=== PATIENT | male | born 1960 | race Caucasian/White ===

== ENCOUNTER 2019-06-09 10:13 | Inpatient (IN) ==
--- NOTE | 2019-05-29 16:23 | PAT Medication Instructions ---
Medication Instructions Date of Service May 29, 2019 Home Medications bupropion HCl [Wellbutrin SR] 100 mg PO QAM lamotrigine [Lamictal] 100 mg PO BID omeprazole magnesium [Prilosec OTC] 20 mg PO DAILY PRN sertraline 100 mg PO BID cholecalciferol (vitamin D3) [Vitamin D3] 2,000 unit PO QAM vit C,K-Yd-mzbmf-lutein-zeaxan [PreserVision AREDS-2] 1 tab PO QAM STOP taking 2 weeks before surgery (or as soon as possible if surgery is within 2 weeks) vit C,W-Jh-avjvt-lutein-zeaxan [PreserVision AREDS-2] 1 tab PO QAM DO NOT take the morning of surgery cholecalciferol (vitamin D3) [Vitamin D3] 2,000 unit PO QAM Take morning of surgery With a small sip of water, OTHERWISE NOTHING TO EAT OR DRINK AFTER MIDNIGHT: bupropion HCl [Wellbutrin SR] 100 mg PO QAM lamotrigine [Lamictal] 100 mg PO BID omeprazole magnesium [Prilosec OTC] 20 mg PO DAILY PRN (if needed) sertraline 100 mg PO BID Take evening before surgery lamotrigine [Lamictal] 100 mg PO BID sertraline 100 mg PO BID Other Notes If you have any questions please call us at [phone] or [phone] or [phone] or [phone]
--- NOTE | 2019-05-30 08:50 | Anesthesiology Consultation ---
Date of Service May 30, 2019 Assessment & Plan (1) Encounter for pre-operative examination: Chart Review Chart Review: Acceptable Risk for Surgery and Patient seen in Pre Admission Testing Teaching & Discussion Pre-Anesthesia Teaching/Discussion Notes: Instructed NPO after midnight before surgery,except medications with 15 cc of water. Medication instructions provided according to the PAT guidelines. History Surgery Operation Date: 06/09/19 12:45 Proposed Procedures p Right Anterior Total Hip Arthroplasty - Vipul Finn DO Height/Weight Height: 5 ft 10 in Weight: 79.3 kg Allergies Allergy/AdvReac Type Severity Reaction Status Date / Time No Known Allergies Allergy Verified 05/29/19 15:34 Medications Home Medications Medication Instructions Recorded Confirmed Last Taken bupropion HCl [Wellbutrin SR] 100 mg PO QAM 08/20/18 05/29/19 08/19/18 lamotrigine [Lamictal] 100 mg PO BID 08/20/18 05/29/19 08/19/18 omeprazole magnesium [Prilosec OTC] 20 mg PO DAILY PRN 08/20/18 05/29/19 08/19/18 sertraline 100 mg PO BID 08/20/18 05/29/19 08/19/18 cholecalciferol (vitamin D3) 2,000 unit PO QAM 05/29/19 05/29/19 Unknown [Vitamin D3] vit C,J-Vj-yfdeq-lutein-zeaxan 1 tab PO QAM 05/29/19 05/29/19 Unknown [PreserVision AREDS-2] Past Medical History Medical History GERD (gastroesophageal reflux disease) controlled Depression History of Ruiz's esophagus Osteoarthritis Exercise / Class Metabolic Activity II 4-5 Yardwork/Stairs/Walk up hill Past Surgical History Surgical History History of shoulder surgery Past Anesthesia History No Hx of Anesthesia Complications and No Family Hx of Anesthesia Complications History of PONV No Hx of PONV and Hx of Motion Sickness Social History Smoking Status: Never smoker Do You Dip or Chew Tobacco: No Hx Alcohol Use: Yes Alcohol type: beer alcohol intake frequency: 0-2 drinks per day (2 beers/day) Hx Substance Use: No Review of Systems Reflux controlled. Patient denies chest pain, shortness of breath, dyspnea on exertion, cough, wheezing, palpitations. Physical Exam Vital Signs VITALS BP 118/79 P 70 TEMP 98.2 SP02 98%RA RESP 16 PHYSICAL Full neck and c-spine range of motion. Full TMJ range of motion. TMD 3 finger breaths Mallampati Score 1 Dentition: missing molars, ?cap on molars Lungs: clear throughout to auscultation Cardiac: regular rate and rhythm, no murmurs noted Spine: normal Carotid arteries: negative bruit Extremities: no edema Trimmed [place] Testing Laboratory Results 05/30/19 09:09 05/30/19 09:09 PT 10.0 Seconds (9.0-12.0) 05/30/19 09:09 INR 1.0 (0.9-1.1) 05/30/19 09:09 APTT 26.1 Seconds (21.0-31.0) 05/30/19 09:09 Blood Type B Positive 05/30/19 09:09 Antibody Screen NEGATIVE 05/30/19 09:09 Electrocardiogram Date: 05/30/19 Findings: + NSR @ (68) Chest X-Ray Date: 05/30/19 Findings: + NAD
--- NOTE | 2019-05-30 09:54 | XRay Report ---
TWO VIEW CHEST CLINICAL HISTORY: Preoperative examination. FINDINGS: PA and lateral chest radiographs are obtained. No prior studies are available for compariso n at the time of dictation. The cardiomediastinal silhouette is unremarkable. The lungs and pleura l spaces are clear. There is no pneumothorax. The bony thorax appears intact. IMPRESSION: No active disease in the chest. Electronically signed by: Baldo Watts M.D. 05/30/2019 9:53 AM
[2019-05-30 10:49] LABS: Basophils # (auto) 0.03 K/uL (0-0.2); Basophils % (auto) 0.6 %; Eosinophils # (auto) 0.12 K/uL (0-0.5); Eosinophils % (auto) 2.6 %; Hematocrit (blood only) 42.5 % (42-52); Hemoglobin 14.3 g/dL (14.0-18.0); Immature Granulocytes # (auto) 0.01 K/uL (0.00-0.02); Immature Granulocytes % (auto) 0.2 %; Lymphocytes # (auto) 1.23 K/uL (1.2-3.4); Lymphocytes % (auto) 26.2 %; Mean Corpuscular Hgb Conc 33.6 g/dL (32-36); Mean Corpuscular Volume 96.4 fL (80-100); Mean Platelet Volume 10.7 fL (7.4-10.4); Monocytes # (auto) 0.49 K/uL (0.11-0.59); Monocytes % (auto) 10.4 %; Neutrophils # (auto) 2.82 K/uL (1.4-6.5); Platelet Count 166 K/uL (130-400); RDW Coefficient of Variation 12.4 % (11.5-14.5); RDW Standard Deviation 43.7 fL (36.4-46.3); Red Blood Count 4.41 M/uL (4.7-6.1)
[2019-05-30 10:55] LABS: BUN Creatinine Ratio 17.1 (10-20); Calcium 8.9 mg/dl (8.5-10.1); Creatinine Clr Calc Pharmacy 70.8 ml/min; Est GFR (African American) 79.4; Est GFR (Non-African American) 68.5; Potassium 5.2 mmol/L (3.5-5.1)
[2019-05-30 11:00] LABS: Partial Thromboplastin Time 26.1 Seconds (21.0-31.0)
--- NOTE | 2019-06-07 07:35 | History & Physical Report ---
Date of Service June 07, 2019 Assessment & Plan (1) Osteoarthritis of right hip: We will proceed with a right anterior total hip arthroplasty. Postoperatively he will be placed on aspirin for DVT prophylaxis and kept overnight in the hospital for postoperative medical management. He plans to use energy physical therapy upon discharge. Present on Admission?: Yes History of Present Illness Chief Complaint: Primary osteoarthritis of the right hip Primary Care Provider: DEWEY Hu Kevin is a pleasant 58-year-old male is been having a several year history of increasing right hip and groin pain. X-rays and clinical examination have been diagnostic for advanced osteoarthritis of the right hip. After failing conservative treatment, he has elected to proceed with a right total hip arthroplasty. Allergies Allergy/AdvReac Type Severity Reaction Status Date / Time No Known Allergies Allergy Verified 05/29/19 15:34 Home Medications Home Medications Medication Instructions Recorded Confirmed Type bupropion HCl [Wellbutrin SR] 100 mg PO QAM 08/20/18 05/29/19 History lamotrigine [Lamictal] 100 mg PO BID 08/20/18 05/29/19 History omeprazole magnesium [Prilosec OTC] 20 mg PO DAILY PRN 08/20/18 05/29/19 History sertraline 100 mg PO BID 08/20/18 05/29/19 History cholecalciferol (vitamin D3) 2,000 unit PO QAM 05/29/19 05/29/19 History [Vitamin D3] vit C,N-Hy-nrewv-lutein-zeaxan 1 tab PO QAM 05/29/19 05/29/19 History [PreserVision AREDS-2] Past Med/Surg History Medical History GERD (gastroesophageal reflux disease) controlled Depression History of Ruiz's esophagus Osteoarthritis Surgical History History of shoulder surgery Social History Preferred Language: Latvian Beliefs That Will Affect Care: None Current Living Situation: Family Feels Safe at Home: Yes Smoking Status: Never smoker Do You Dip or Chew Tobacco: No Second Hand Exposure: No Hx Alcohol Use: Yes Alcohol type: beer Hx Substance Use: No Review of Systems All systems reviewed & are unremarkable except as noted in HPI & below Physical Exam Constitutional: WD/WN, vitals as above Eyes: PERRL, conjunctivae normal, anicteric sclerae ENMT: external ear and nose normal, oropharynx normal Neck: trachea midline, no thyromegaly Respiratory: normal respiratory effort Cardiovascular: RRR, no murmur, no edema Gastrointestinal (Abdomen): normal bowel sounds, soft, nontender, no hepatosplenomegaly Musculoskeletal: Physical examination of the right hip reveals decreased range of motion with flexion, internal and external rotation. There is significant groin pain with forced internal rotation of the hip his leg lengths are essentially equal. Psychiatric: A+Ox3, euthymic affect Results & Data Diagnostic Findings Radiographs of the right hip and pelvis demonstrate advanced osteoarthritis with joint space narrowing osteophyte formation and [id number] articulation.
[~2019-06-09 10:13] MED LIST: ACETAMINOPHEN 500 MG TAB PO SCH; BUPIVACAINE 0.5 % 5 MG/1 ML PF 10ML VIAL ONE; BUPIVACAINE LIPOSOME/PF 266 MG, BUPIVACAINE/EPINEPHRINE 50 ML, SODIUM CHLORIDE 0.9% 30 ... INFIL SCH; CEFAZOLIN 1000MG 1,000 MG/7.5 ML SYR IV SCH; FAMOTIDINE 20 MG TAB PO SCH; GABAPENTIN 300 MG CAP PO SCH; LR 500ML BOLUS IV SCH; LR 500ML BOLUS, THEN 15ML/HR IV SCH; LR 60ML/HR IV SCH; MIDAZOLAM HCL 1 MG/ML 2ML VIAL ONE; ROPIVACAINE 0.5% HCL/PF 150 MG, BUPIVACAINE 0.5% MPF 30 ML, EPINEPHrine 30MG/30ML (OR U... INFIL SCH; TRANEXAMIC ACID 1,000 MG **IV Intra-op IV SCH; TRANEXAMIC ACID 1,000 MG **IV Pre-op IV SCH; fentaNYL citrate 100 MCG/2 ML VIAL ONE
--- NOTE | 2019-06-09 10:14 | History & Physical Bridge Note ---
Date of Service June 09, 2019 History & Physical Bridge Note I have examined the patient, reviewed the History & Physical and in the interval since the performance of the History & Physical I have noted the following changes of clinical significance: no changes noted
[2019-06-09] MEDS ORDERED: ePHEDrine sulfate 50 MG/ML AMP IV PRN (10:59)
[2019-06-09] MEDS ORDERED: fentaNYL citrate 100 MCG/2 ML VIAL IV PRN (10:59)
[2019-06-09] MEDS ORDERED: ONDANSETRON INJ 2 MG/ML 2 ML VIAL IV PRN ×2 (10:59→15:52)
[2019-06-09] MEDS ORDERED: PHENYLEPHRINE 100MCG/ML 5ML SYR IV PRN (10:59)
[2019-06-09] MEDS ORDERED: ATROPINE SULFATE 0.1 MG/ML 10ML SYR IV PRN (10:59)
[2019-06-09] MEDS ORDERED: LABETALOL HCL IV 5 MG/ML 20ML IV PRN (10:59)
[2019-06-09] MEDS ORDERED: ORTHO JOINT ANESTHETIC ONE (11:34)
[2019-06-09] MEDS ORDERED: MIDAZOLAM HCL 1 MG/ML 2ML VIAL ONE (12:03)
[2019-06-09] MEDS ORDERED: ONDANSETRON INJ 2 MG/ML 2 ML VIAL ONE (12:24)
[2019-06-09] MEDS ORDERED: LIDOCAINE HCL 2% 2 ML VIAL/AMP(20MG/ML) INFIL ONE (12:24)
[2019-06-09] MEDS ORDERED: PROPOFOL IV EMULSION 10 MG/ML 20 ML VIAL IV ONE ×2 (12:24→13:53)
[2019-06-09] MEDS ORDERED: ePHEDrine sulfate 50 MG/ML AMP ONE (12:24)
[2019-06-09] MEDS ORDERED: CEFAZOLIN 1000MG 1,000 MG/7.5 ML SYR IV ONE (12:29)
[2019-06-09] MEDS ORDERED: CEFAZOLIN 250 MG/ML 1 GM VIAL ONE (13:35)
--- NOTE | 2019-06-09 13:45 | Operative Report ---
Post Operative Report Pre & Post Diagnosis Operation Date: 06/09/19 12:10 Pre-Op Diagnosis: Right Hip Degenerative Joint Disease Post-Op Diagnosis: Right Hip Degenerative Joint Disease Procedure Operation Date: 06/09/19 12:10 Actual Procedures p Right Anterior Total Hip Arthroplasty - Vipul Finn DO Surgeon Vipul Finn DO Ward Supervisor Vipul Henson PAC Estimated Blood Loss 350 Findings Consistent with Post-Op Diagnosis Specimens Right femoral head Complications none Disposition Disposition: Recovery Room Indications Saurav is a pleasant 58-year-old male who presented my office with chronic increasing right hip and groin pain. X-rays and clinical examination were diag nostic for primary osteoarthritis of the right hip. After failing conservative treatment, he elected to proceed with a right total hip arthroplasty. Description of Procedure Implants used Biomet Taperloc total hip arthroplasty system with a size 11 standard offset Taperloc stem, a 56 mm G7 cup with a 25mm screw, an E1 polyethylene liner, a 40 mm ceramic head with a 0 neck. Patient arrived at the hospital for the above procedure. They were seen in the preoperative holding area and the operative extremity was identified and signed. They were given a spinal anesthetic. They were given a preoperative antibiotic and TXA. They were taken back To the operating room and laid on the table in the supine position. The leg was brought out through a Puristst leg positioner. The hip was then prepped and draped in sterile fashion. A timeout was done and the patient in upper extremities properly identified. An anterior approach was used. Dissection was taken down through the fascia and the tensor muscle belly was retracted laterally and the rectus was retracted medially. The circumflex vessels were identified and ligated. The capsule was then incised and tagged for later repair. The femoral neck was then cut and the femoral head was removed. The acetabulum was exposed. Time was spent doing a complete circumferential labral release. Sequential reaming of the acetabulum up to a size 55 reamer was done. Final reamings were done under fluoroscopy to ensure appropriate version. A Biomet 56 mm G7 cup was then impacted into place. A single 25 mm screw was placed. The E1 polyethylene liner was then snapped into place. Surrounding soft tissues were then injected with 100 cc of an orthopedic pain control cocktail. The proximal femur was then exposed. Sequential broaching up to a size 11 broach was done. Off that broach a size 40 head with a 0 neck was trialed. The hip was reduced and fluoroscopic images showed anatomic alignment of the implants in acceptable length. The broach was removed. The final size 11 standard offset Taperloc stem was then impacted into place. A ceramic 40 mm head with a 0 neck was then impacted into place in the hip was reduced. Final fluoroscopic images showed anatomic reduction of the hip. The capsule was then closed with #1 Vicryl suture. A dilute betadyne lavage was then done for 3 minutes. The joint was then irrigated with normal saline solution. The fascia was closed with #1 PDS suture. Skin was closed with 2-0 Vicryl, julia, and a Ashely VAC dressing. The patient was then transferred to a hospital bed and taken to the post anesthesia care unit in stable condition. They tolerated the procedure well. I attest to the content of the Intraoperative Record and any orders documented therein. Any exceptions are noted below.
--- NOTE | 2019-06-09 15:10 | Anesthesiology Progress Note ---
Date of Service June 09, 2019 Anesthesia Post Procedure Vital Signs Vital Signs: Temp Pulse Pulse Resp BP Pulse Ox 06/09/19 14:55 68 15 93/64 L 97 06/09/19 14:45 67 18 95/62 L 95 06/09/19 14:35 64 20 96/65 L 96 06/09/19 14:25 67 16 102/70 99 06/09/19 14:15 36.3 C L 78 21 114/69 98 06/09/19 10:55 36.8 C 74 18 138/71 94 Pain Intensity Right Hip: Pain Intensity: 0 Transfer of Care Handoff Completed per policy Notes Mental Status: alert / awake / arousable Patient Amnestic to Procedure: Yes Nausea / Vomiting: adequately controlled Pain: adequately controlled Airway Patency, RR, SpO2: stable & adequate BP & HR: stable & adequate Hydration State: stable & adequate Neuraxial Anesthesia: was administered and sensory block is resolving Anesthetic Complications: no major complications apparent and Pt Satisfied with anesthetic care
--- NOTE | 2019-06-09 15:18 | XRay Report ---
XR hip 1V RT w pelvis CLINICAL HISTORY: Degenerative arthritis. Hip arthroplasty. COMPARISON: May 2019 DISCUSSION: There are postsurgical changes of a total right hip arthroplasty. The acetabular and femo ral components appear well seated. There is no dislocation. Overlying skin julia are evident. There is air within the soft tissues consistent with recent surgery. Arthritic changes are present within the left hip with deformity of the femoral head unchanged from the preceding study IMPRESSION: Postsurgical changes of a total right hip arthroplasty. No evidence of dislocation. Electronically signed by: Eliezer Martin M.D. 06/09/2019 3:16 PM
[2019-06-09] MEDS ORDERED: MAGNESIUM HYDROXIDE SUSP 30 ML UDC PO PRN (15:52)
[2019-06-09] MEDS ORDERED: NALOXONE HCL 0.4 MG/1 ML VIAL/CARP IV PRN (15:52)
[2019-06-09] MEDS ORDERED: BISACODYL 10 MG SUPP PR PRN (15:52)
[2019-06-09] MEDS ORDERED: PANTOprazole 40 MG TAB PO PRN (15:52)
[2019-06-09] MEDS ORDERED: SODIUM CHLORIDE 0.9% 1000ML 1,000 ML IV SCH (15:52)
[2019-06-09] MEDS ORDERED: METOCLOPRAMIDE HCL INJ 5 MG/ML 2 ML VIAL IV PRN (15:52)
[2019-06-09] MEDS ORDERED: HYDROmorphone INJ 0.5 MG/0.5 ML SYR IV PRN (15:52)
--- NOTE | 2019-06-09 16:40 | Fluoroscopy Report ---
FL hip RT 1V CLINICAL HISTORY: RT ANTERIOR HIP COMPARISON STUDY: None. FLUOROSCOPY TIME: 52nd. FINDINGS: 2 fluoroscopic spot images of the right hip demonstrate a right total hip arthroplasty. The hardware appears intact. No fracture or dislocation. IMPRESSION: Fluoroscopy provided for right total hip arthroplasty. Electronically signed by: Matthew Silva M.D. 06/09/2019 4:39 PM
[2019-06-09] MEDS: KETOROLAC 30 MG/ML VIAL IV SCH ×2 (17:09→23:23)
[2019-06-09] MEDS: CEFAZOLIN 2000MG 2,000 MG/15 ML SYR IV SCH (19:27)
[2019-06-09] MEDS: lamoTRIgine 100 MG TAB PO SCH (20:30)
[2019-06-09] MEDS: SERTRALINE HCL 100 MG TABLET PO SCH (20:30)
[2019-06-09] MEDS ORDERED: ACETAMINOPHEN 500 MG TAB ONE (20:50)
[2019-06-09] MEDS: DOCUSATE SODIUM 100 MG CAP PO SCH (20:51)
[2019-06-09] MEDS: ACETAMINOPHEN 500 MG TAB PO SCH (20:51)
[2019-06-09] MEDS: ASPIRIN 81 MG ECTAB PO SCH (20:51)
[2019-06-09] MEDS ORDERED: SENNA 8.6 MG TAB PO SCH (21:00)
[2019-06-10] MEDS: OXYCODONE HCL IR 5 MG TAB (IMMEDIATE RELEASE) PO PRN ×2 (01:45→10:30)
[2019-06-10] MEDS: CEFAZOLIN 2000MG 2,000 MG/15 ML SYR IV SCH (04:50)
[2019-06-10] MEDS: KETOROLAC 30 MG/ML VIAL IV SCH ×2 (04:51→12:21)
[2019-06-10] MEDS: ACETAMINOPHEN 500 MG TAB PO SCH (04:52)
[2019-06-10 06:28] LABS: Basophils # (auto) 0.02 K/uL (0-0.2); Basophils % (auto) 0.2 %; Eosinophils # (auto) 0.02 K/uL (0-0.5); Eosinophils % (auto) 0.2 %; Hemoglobin 10.5 g/dL (14.0-18.0); Immature Granulocytes # (auto) 0.03 K/uL (0.00-0.02); Immature Granulocytes % (auto) 0.3 %; Lymphocytes # (auto) 1.11 K/uL (1.2-3.4); Lymphocytes % (auto) 10.6 %; Mean Corpuscular Hgb Conc 33.9 g/dL (32-36); Mean Corpuscular Volume 95.7 fL (80-100); Mean Platelet Volume 9.9 fL (7.4-10.4); Monocytes # (auto) 0.85 K/uL (0.11-0.59); Monocytes % (auto) 8.1 %; Neutrophils # (auto) 8.44 K/uL (1.4-6.5); Neutrophils % (auto) 80.6 %; Platelet Count 124 K/uL (130-400); RDW Coefficient of Variation 12.6 % (11.5-14.5); RDW Standard Deviation 44.2 fL (36.4-46.3); Red Blood Count 3.24 M/uL (4.7-6.1); White Blood Count 10.47 K/uL (4.8-10.8)
[2019-06-10 07:03] LABS: BUN Creatinine Ratio 18.2 (10-20); Calcium 8.1 mg/dl (8.5-10.1); Creatinine Clr Calc Pharmacy 81.3 ml/min; Est GFR (African American) 93.9; Potassium 4.3 mmol/L (3.5-5.1)
[2019-06-10] MEDS ORDERED: MULTIVITAMIN TAB PO SCH (09:00)
[2019-06-10] MEDS ORDERED: NON-FORMULARY MEDICATION (Vit C,E-Zn-Coppr-Lutein-Zeaxan [Preservision Areds-2] 1 TAB) PO SCH (09:00)
[2019-06-10] MEDS ORDERED: BuPROPion SR 100 MG TABCR PO SCH (09:00)
[2019-06-10] MEDS: SERTRALINE HCL 100 MG TABLET PO SCH (09:13)
[2019-06-10] MEDS: ASPIRIN 81 MG ECTAB PO SCH (09:13)
[2019-06-10] MEDS: lamoTRIgine 100 MG TAB PO SCH (09:13)
[2019-06-10] MEDS: DOCUSATE SODIUM 100 MG CAP PO SCH (09:14)
--- NOTE | 2019-06-10 09:45 | Orthopedic Progress Note ---
Date of Service June 10, 2019 Assessment & Plan (1) Osteoarthritis of right hip: Overall he is doing very well. Is not having too much pain in the hip. He will be seen by physical therapy this morning for ambulation and range of motion exercises. He will be discharged home later this morning. He will follow-up with orthopedics in 2 weeks. Present on Admission?: Yes Subjective Saurav was seen and examined at bedside this morning. Overall is doing very well. Is not having too much pain in the right hip. He is already been ambulating. His pain is controlled and he has no complaints. Physical Exam Musculoskeletal: On physical examination of the right hip, the Ashely VAC dressing is to suction. He has active dorsiflexion and plantarflexion of the right ankle. Sensations intact throughout. Results & Data Vital Signs (Past 12 Hours) Vital Signs Temp Pulse Resp BP Pulse Ox 06/10/19 08:10 36.8 C 76 18 111/73 96 06/10/19 03:02 36.5 C 71 14 112/69 95 06/09/19 23:41 36.4 C L 63 16 99/61 L 96 PG Care Time/CCT Total # of Minutes Spent Total Time Spent with Patient: Total time spent is greater than 50% in coordination of care (as documented) at patient's floor/unit and/or counseling patient:
--- NOTE | 2019-06-10 09:46 | Discharge Summary ---
Date of Service June 10, 2019 Admission HPI Per Admitting Provider Kevin hernandez a pleasant 58-year-old male is been having a several year history of increasing right hip and groin pain. X-rays and clinical examination have been diagnostic for advanced osteoarthritis of the right hip. After failing conservative treatment, he has elected to proceed with a right total hip arthroplasty. Specialty Data Orthopedic H & H 05/30/19 06/10/19 Range/Units 09:09 05:57 Hgb 14.3 10.5 L (14.0-18.0) g/dL Hct 42.5 31.0 L (42-52) % Coagulation 05/30/19 Range/Units 09:09 INR 1.0 (0.9-1.1) Discharge Data Consultations 06/10/19 08:00 Consult Case Management - Discharge Planning Routine Procedures Performed Operation Date: 06/09/19 12:10 Actual Procedures p Right Anterior Total Hip Arthroplasty - Vipul Finn DO Hospital Course (1) Osteoarthritis of right hip: On June 09, 2019.arrived at [facility] and underwent a right anterior total hip arthroplasty without complication. He had a spinal anesthetic. Postoperatively he was started on aspirin for DVT prophylaxis and discharged to general orthopedic floors. His hospital course is uneventful. On postop day #1 his H&H was stable and his pain was well controlled. He was able to ambulate well with physical therapy. He was then discharged home with [facility]. He will follow-up with orthopedics in 2 weeks. Discharge Instructions Home Medications Medication Instructions Recorded Confirmed bupropion HCl [Wellbutrin SR] 100 mg PO QAM 08/20/18 06/09/19 lamotrigine [Lamictal] 100 mg PO BID 08/20/18 06/09/19 omeprazole magnesium [Prilosec OTC] 20 mg PO DAILY PRN 08/20/18 06/09/19 sertraline 100 mg PO BID 08/20/18 06/09/19 cholecalciferol (vitamin D3) 10,000 unit PO QAM 05/29/19 06/09/19 [Vitamin D3] vit C,X-Fr-qbsja-lutein-zeaxan 1 tab PO QAM 05/29/19 06/09/19 [PreserVision AREDS-2] Previous Rx's Medication Instructions Recorded aspirin [Ecotrin Low Strength] 81 mg PO BID #84 tab 06/10/19 oxycodone 5 mg PO Q4H PRN #30 tab 06/10/19
== END 2019-06-10 13:28 | disposition home or self-care (01) | DRG 470 ==
LOC: ASU 10:13 → 3E 14:20

== ENCOUNTER 2019-10-20 05:07 | Inpatient (IN) ==
--- NOTE | 2019-09-26 12:04 | PAT Medication Instructions ---
Medication Instructions Date of Service September 26, 2019 Home Medications Prilosec OTC 20 mg PO DAILY PRN bupropion HCl [Wellbutrin SR] 100 mg PO QAM lamotrigine [Lamictal] 100 mg PO BID sertraline 100 mg PO BID PreserVision AREDS-2 1 tab PO QAM cholecalciferol (vitamin D3) [Vitamin D3] 4,000 unit PO QAM aspirin [Ecotrin Low Strength] 81 mg PO QAM ibuprofen 400 mg PO Q6H PRN ASK your surgeon for instructions ibuprofen 400 mg PO Q6H PRN STOP taking 2 weeks before surgery (or as soon as possible if surgery is within 2 weeks) PreserVision AREDS-2 1 tab PO QAM DO NOT take the morning of surgery cholecalciferol (vitamin D3) [Vitamin D3] 4,000 unit PO QAM Take morning of surgery With a small sip of water, OTHERWISE NOTHING TO EAT OR DRINK AFTER MIDNIGHT: Prilosec OTC 20 mg PO DAILY PRN (if needed) bupropion HCl [Wellbutrin SR] 100 mg PO QAM lamotrigine [Lamictal] 100 mg PO BID sertraline 100 mg PO BID aspirin [Ecotrin Low Strength] 81 mg PO QAM Take evening before surgery Prilosec OTC 20 mg PO DAILY PRN (if needed) lamotrigine [Lamictal] 100 mg PO BID sertraline 100 mg PO BID Other Notes If you have any questions please call us at [phone] or [phone] or [phone] or [phone]
--- NOTE | 2019-09-27 11:09 | Anesthesiology Consultation ---
Date of Service September 27, 2019 Assessment & Plan (1) Encounter for pre-operative examination: - S/P Right anterior hip arthroplasty: 06/09/19: SAB x 1 at L3-L4 at [facility] Chart Review Chart Review: Acceptable Risk for Surgery and Patient seen in Pre Admission Testing Teaching & Discussion Pre-Anesthesia Teaching/Discussion Notes: Instructed NPO after midnight before surgery,except medications with 15 cc of water. Medication instructions provided according to the PAT guidelines. History Surgery Operation Date: 10/20/19 12:10 Proposed Procedures p Left Anterior Total Hip Arthroplasty - Vipul Finn, Height/Weight Height: 5 ft 10 in Weight: 82.6 kg Allergies Allergy/AdvReac Type Severity Reaction Status Date / Time No Known Allergies Allergy Verified 09/20/19 08:06 Medications Home Medications Medication Instructions Recorded Confirmed Last Taken Prilosec OTC 20 mg PO DAILY PRN 08/20/18 09/20/19 08/19/18 bupropion HCl [Wellbutrin SR] 100 mg PO QAM 08/20/18 09/20/19 06/08/19 09:30 lamotrigine [Lamictal] 100 mg PO BID 08/20/18 09/20/19 06/08/19 22:00 sertraline 100 mg PO BID 08/20/18 09/20/19 06/08/19 22:00 PreserVision AREDS-2 1 tab PO QAM 05/29/19 09/20/19 06/01/19 cholecalciferol (vitamin D3) 4,000 unit PO QAM 05/29/19 09/20/19 06/08/19 09:30 [Vitamin D3] aspirin [Ecotrin Low Strength] 81 mg PO QAM 09/20/19 09/20/19 Unknown ibuprofen 400 mg PO Q6H PRN 09/20/19 09/20/19 Unknown Past Medical History Medical History Depression GERD (gastroesophageal reflux disease) controlled History of Ruiz's esophagus Insomnia Osteoarthritis Exercise / Class Metabolic Activity II 4-5 Yardwork/Stairs/Walk up hill (one flight of stairs (no chest pain/no sob)) Past Family History Family History Grandmother (Paternal) Family history of diabetes mellitus Father Family history of diabetes mellitus Brother Family history of diabetes mellitus Family/Other Family history of diabetes mellitus Past Surgical History Surgical History History of colonoscopy History of esophagogastroduodenoscopy (EGD) History of shoulder surgery left History of tooth extraction History of total hip arthroplasty Right anterior hip arthroplasty: 06/09/19: SAB x 1 at L3-L4 at [facility] Past Anesthesia History No Family Hx of Anesthesia Complications and Other Hx post-op constipation (per patient, already discussed with surgeon). History of PONV No Hx of PONV and Hx of Motion Sickness Social History Smoking Status: Never smoker Do You Dip or Chew Tobacco: No Hx Alcohol Use: Yes Alcohol type: hard liquor alcohol intake frequency: 0-2 drinks per day (one drink/night) Hx Substance Use: No Review of Systems Reflux controlled. Patient denies chest pain, shortness of breath, dyspnea on exertion, cough, wheezing, palpitations. Physical Exam Vital Signs VITALS BP 122/79 P 63 TEMP 98.4 SP02 97%RA RESP 16 PHYSICAL Full neck and c-spine range of motion. Full TMJ range of motion. TMD 3 finger breaths Mallampati Score 2 Dentition: missing molars, several crowns on molars Lungs: clear throughout to auscultation Cardiac: regular rate and rhythm, no murmurs noted Spine: normal Carotid arteries: negative bruit Extremities: no edema Trimmed [place] Testing Laboratory Results 09/27/19 11:28 09/27/19 11:28 PT 10.5 Seconds (9.0-12.0) 09/27/19 11:28 INR 1.0 (0.9-1.1) 09/27/19 11:28 APTT 26.4 Seconds (21.0-31.0) 09/27/19 11:28 Blood Type B Positive 09/27/19 11:28 Antibody Screen NEGATIVE 09/27/19 11:28 Electrocardiogram Date: 05/30/19 Findings: + NSR @ (68) Chest X-Ray Date: 05/30/19 Findings: + NAD
[2019-09-27 12:31] LABS: Basophils # (auto) 0.06 K/uL (0-0.2); Basophils % (auto) 1.4 %; Eosinophils # (auto) 0.08 K/uL (0-0.5); Eosinophils % (auto) 1.9 %; Hematocrit (blood only) 42.7 % (42-52); Lymphocytes # (auto) 1.01 K/uL (1.2-3.4); Lymphocytes % (auto) 23.7 %; Mean Corpuscular Hgb Conc 32.8 g/dL (32-36); Mean Corpuscular Volume 94.5 fL (80-100); Mean Platelet Volume 10.8 fL (7.4-10.4); Monocytes # (auto) 0.34 K/uL (0.11-0.59); Neutrophils # (auto) 2.77 K/uL (1.4-6.5); Platelet Count 172 K/uL (130-400); RDW Coefficient of Variation 13.5 % (11.5-14.5); RDW Standard Deviation 46.7 fL (36.4-46.3); Red Blood Count 4.52 M/uL (4.7-6.1); White Blood Count 4.26 K/uL (4.8-10.8)
[2019-09-27 12:45] LABS: Partial Thromboplastin Time 26.4 Seconds (21.0-31.0); Prothrombin Time 10.5 Seconds (9.0-12.0)
[2019-09-27 12:46] LABS: BUN Creatinine Ratio 17.7 (10-20); Calcium 9.1 mg/dl (8.5-10.1); Creatinine Clr Calc Pharmacy 79.7 ml/min; Est GFR (African American) 91.7; Est GFR (Non-African American) 79.1; Potassium 4.5 mmol/L (3.5-5.1)
--- NOTE | 2019-10-19 09:12 | History & Physical Report ---
Date of Service October 19, 2019 Assessment & Plan (1) Osteoarthritis of left hip: We will proceed with a left anterior total hip arthroplasty. Postoperatively he will be started on aspirin for DVT prophylaxis. He will be kept overnight in the hospital for postoperative medical management. He plans to use energy physical therapy upon discharge. Present on Admission?: Yes History of Present Illness Chief Complaint: Primary osteoarthritis of the left hip Primary Care Provider: DEWEY Hu Saurav is a pleasant 58-year-old male who is been dealing with chronic increasing bilateral knee pain. X-rays and clinical examination have been diagnostic for primary osteoarthritis of both hips. He underwent a right anterior total hip arthroplasty in June 2019 and did very well with that. He has now elected to proceed with a left total knee arthroplasty. Allergies Allergy/AdvReac Type Severity Reaction Status Date / Time No Known Allergies Allergy Verified 09/20/19 08:06 Home Medications Home Medications Medication Instructions Recorded Confirmed Type Prilosec OTC 20 mg PO DAILY PRN 08/20/18 09/20/19 History bupropion HCl [Wellbutrin SR] 100 mg PO QAM 08/20/18 09/20/19 History lamotrigine [Lamictal] 100 mg PO BID 08/20/18 09/20/19 History sertraline 100 mg PO BID 08/20/18 09/20/19 History PreserVision AREDS-2 1 tab PO QAM 05/29/19 09/20/19 History cholecalciferol (vitamin D3) 4,000 unit PO QAM 05/29/19 09/20/19 History [Vitamin D3] aspirin [Ecotrin Low Strength] 81 mg PO QAM 09/20/19 09/20/19 History ibuprofen 400 mg PO Q6H PRN 09/20/19 09/20/19 History Past Med/Surg History Medical History Depression GERD (gastroesophageal reflux disease) controlled History of Ruiz's esophagus Insomnia Osteoarthritis Surgical History History of colonoscopy History of esophagogastroduodenoscopy (EGD) History of shoulder surgery left History of tooth extraction History of total hip arthroplasty Right anterior hip arthroplasty: 06/09/19: SAB x 1 at L3-L4 at [facility] Family History Grandmother (Paternal) Family history of diabetes mellitus Father Family history of diabetes mellitus Brother Family history of diabetes mellitus Family/Other Family history of diabetes mellitus Social History Preferred Language: Arabic Communication Ability: Effective Revenue Cycle Manager Required: No Beliefs That Will Affect Care: None Current Living Situation: Alone Feels Safe at Home: Yes Smoking Status: Never smoker Second Hand Exposure: No ; Hx Alcohol Use: Yes Alcohol type: hard liquor Hx Substance Use: No Review of Systems All systems reviewed & are unremarkable except as noted in HPI & below Physical Exam Constitutional: WD/WN, vitals as above Eyes: PERRL, conjunctivae normal, anicteric sclerae ENMT: external ear and nose normal, oropharynx normal Neck: trachea midline, no thyromegaly Respiratory: normal respiratory effort Cardiovascular: RRR, no murmur, no edema Gastrointestinal (Abdomen): normal bowel sounds, soft, nontender, no hepatosplenomegaly Musculoskeletal: Physical examination of the left hip reveals decreased range of motion with flexion, internal and external rotation. There is significant groin pain with forced internal rotation of the hip his leg lengths are essentially equal. Psychiatric: A+Ox3, euthymic affect Results & Data Diagnostic Findings Radiographs of the left hip and pelvis demonstrate advanced osteoarthritis with joint space narrowing osteophyte formation and [id number] articulation.
[2019-10-20] MEDS ORDERED: LACTATED RINGER'S 1,000 ML IV SCH (06:00)
[2019-10-20] MEDS ORDERED: LR 500ML BOLUS, THEN 15ML/HR IV SCH (06:00)
[2019-10-20] MEDS ORDERED: TRANEXAMIC ACID 1,000 MG **IV Pre-op IV SCH (06:00)
[2019-10-20] MEDS ORDERED: FAMOTIDINE 20 MG TAB PO SCH (06:00)
[2019-10-20] MEDS ORDERED: ROPIVACAINE 0.5% HCL/PF 150 MG, BUPIVACAINE 0.5% MPF 30 ML, EPINEPHrine 30MG/30ML (OR U... INFIL SCH (06:00)
[2019-10-20] MEDS ORDERED: CEFAZOLIN 2000MG 2,000 MG/15 ML SYR IV SCH (06:00)
[2019-10-20] MEDS ORDERED: GABAPENTIN 600 MG DOSE PO SCH (06:00)
[2019-10-20] MEDS ORDERED: ACETAMINOPHEN 500 MG TAB PO SCH (06:00)
[2019-10-20] MEDS ORDERED: TRANEXAMIC ACID 1,000 MG **IV Intra-op IV SCH (06:00)
[2019-10-20] MEDS ORDERED: BUPIVACAINE 0.5 % 5 MG/1 ML PF 10ML VIAL ONE (06:18)
[2019-10-20] MEDS ORDERED: dexAMETHasone 4 MG TAB PO ONE (06:26)
[2019-10-20] MEDS ORDERED: fentaNYL citrate 100 MCG/2 ML VIAL IV PRN (06:34)
[2019-10-20] MEDS ORDERED: ONDANSETRON INJ 2 MG/ML 2 ML VIAL IV PRN ×2 (06:34→09:49)
[2019-10-20] MEDS ORDERED: ATROPINE SULFATE 0.1 MG/ML 10ML SYR IV PRN (06:34)
[2019-10-20] MEDS ORDERED: ePHEDrine sulfate 50 MG/ML AMP IV PRN (06:34)
--- NOTE | 2019-10-20 06:35 | History & Physical Bridge Note ---
Date of Service October 20, 2019 History & Physical Bridge Note I have examined the patient, reviewed the History & Physical and in the interval since the performance of the History & Physical I have noted the following changes of clinical significance: no changes noted
[2019-10-20] MEDS ORDERED: MIDAZOLAM HCL 1 MG/ML 2ML VIAL ONE (06:38)
[2019-10-20] MEDS ORDERED: ORTHO JOINT ANESTHETIC ONE (06:49)
[2019-10-20] MEDS ORDERED: PROPOFOL IV EMULSION 10 MG/ML 20 ML VIAL IV ONE (07:29)
[2019-10-20] MEDS ORDERED: ONDANSETRON INJ 2 MG/ML 2 ML VIAL ONE (07:29)
[2019-10-20] MEDS ORDERED: LIDOCAINE HCL 2% 2 ML VIAL/AMP(20MG/ML) INFIL ONE (07:29)
--- NOTE | 2019-10-20 08:21 | Operative Report ---
PG Post Operative Report Pre & Post Diagnosis Operation Date: 10/20/19 07:00 Pre-Op Diagnosis: Left Hip Osteoarthritis Post-Op Diagnosis: Left Hip Osteoarthritis I identified the patient and participated in the time-out.: Yes Procedure Operation Date: 10/20/19 07:00 Actual Procedures p Left Anterior Total Hip Arthroplasty(Left) - Vipul Finn DO Surgeon Vipul Finn, Director Investment Banking Vipul Henson PAC Estimated Blood Loss 300 Findings Consistent with Post-Op Diagnosis Specimens Left femoral head Complications none Disposition Disposition: Recovery Room Julian Mg is a pleasant 58-year-old male who presented my office with bilateral hip pain. X-rays clinical examination were diagnostic for bilateral osteoarthritis of his hips. He underwent a right anterior total hip arthroplasty done 3 months ago and did well with that. He has elected proceed with a left total hip arthroplasty. Description of Procedure Implants used Biomet Taperloc total hip arthroplasty system with a size 11 standard offset Taperloc stem, a 56 mm G7 cup with a 25mm screw, an E1 polyethylene liner, a 40 mm ceramic head with a 0 neck. Patient arrived at the hospital for the above procedure. They were seen in the preoperative holding area and the operative extremity was identified and signed. They were given a spinal anesthetic. They were given a preoperative antibiotic and TXA. They were taken back To the operating room and laid on the table in the supine position. The leg was brought out through a Puristst leg positioner. The hip was then prepped and draped in sterile fashion. A timeout was done and the patient and the operative extremity was properly identified. An anterior approach was used. Dissection was taken down through the fascia and the tensor muscle belly was retracted laterally and the rectus was retracted medially. The circumflex vessels were identified and ligated. The capsule was then incised and tagged for later repair. The femoral neck was then cut and the femoral head was removed. The acetabulum was exposed. Time was spent doing a complete circumferential labral release. Sequential reaming of the acetabulum up to a size 55 reamer was done. Final reamings were done under fluoroscopy to ensure appropriate version. A Biomet 56 mm G7 cup was then impacted into place. A single 25 mm screw was placed. The E1 polyethylene liner was then snapped into place. Surrounding soft tissues were then injected with 100 cc of an orthopedic pain control cocktail. The proximal femur was then exposed. Sequential broaching up to a size 11 broach was done. Off that broach a size 40 head with a 0 neck was trialed. The hip was reduced and fluoroscopic images showed anatomic alignment of the implants in acceptable length. The broach was removed. The final size 11 standard offset Taperloc stem was then impacted into place. A ceramic 40 mm head with a 0 neck was then impacted into place in the hip was reduced. Final fluoroscopic images showed anatomic reduction of the hip. The capsule was then closed with #1 Vicryl suture. A dilute betadyne lavage was then done for 3 minutes. The joint was then irrigated with normal saline solution. The fascia was closed with #1 PDS suture. Skin was closed with 2-0 Vicryl, julia, and a Ashely VAC dressing. The patient was then transferred to a hospital bed and taken to the post anesthesia care unit in stable condition. They tolerated the procedure well. I attest to the content of the Intraoperative Record and any orders documented therein. Any exceptions are noted below.
--- NOTE | 2019-10-20 09:20 | XRay Report ---
XR hip 1V LT w pelvis CLINICAL HISTORY: IN PACU - A/P PELVIS and LATERAL HIP POSTOP EXAMINATION COMPARISON: 06/09/2019 DISCUSSION: A total right hip arthroplasty is again visualized. There is now evidence for a total lef t hip arthroplasty. The acetabular and femoral components appear well seated. There is no dislocation . Overlying skin julia are evident. There is a small amount of gas within the soft tissues consiste nt with recent surgery. IMPRESSION: Postsurgical changes of a total left hip arthroplasty. No complicating features identifie dMario Electronically signed by: Eliezer Martin M.D. 10/20/2019 9:19 AM
[2019-10-20] MEDS ORDERED: HYDROmorphone INJ 0.5 MG/0.5 ML SYR IV PRN (09:49)
[2019-10-20] MEDS ORDERED: NON-FORMULARY MEDICATION (Vit C,E-Zn-Coppr-Lutein-Zeaxan [Preservision Areds-2] 1 TAB) PO SCH (09:49)
[2019-10-20] MEDS ORDERED: METOCLOPRAMIDE HCL INJ 5 MG/ML 2 ML VIAL IV PRN (09:49)
[2019-10-20] MEDS ORDERED: ACETAMINOPHEN 1,000 MG/100 ML VIAL IV PRN (09:49)
[2019-10-20] MEDS ORDERED: bisacodyL 10 MG SUPP PR PRN (09:49)
[2019-10-20] MEDS ORDERED: NALOXONE HCL 0.4 MG/1 ML VIAL/CARP IV PRN (09:49)
[2019-10-20] MEDS ORDERED: MAGNESIUM HYDROXIDE SUSP 30 ML UDC PO PRN (09:49)
[2019-10-20] MEDS ORDERED: PANTOprazole 40 MG TAB PO PRN (09:57)
--- NOTE | 2019-10-20 10:30 | Anesthesiology Progress Note ---
Date of Service October 20, 2019 Anesthesia Post Procedure Vital Signs Vital Signs: Temp Pulse Pulse Pulse Resp BP Pulse Ox 10/20/19 10:19 57 L 16 119/82 99 10/20/19 09:35 97.5 F L 57 L 16 121/81 97 10/20/19 09:25 56 L 12 118/77 97 10/20/19 09:15 97.3 F L 55 L 14 108/79 97 10/20/19 09:05 58 L 23 114/61 99 10/20/19 08:55 60 13 114/74 96 10/20/19 08:49 96.8 F L 63 16 125/77 97 10/20/19 05:31 98.4 F 69 18 128/92 95 Transfer of Care Handoff Completed per policy Notes Mental Status: alert / awake / arousable and participated in evaluation Patient Amnestic to Procedure: Yes Nausea / Vomiting: adequately controlled Pain: adequately controlled Airway Patency, RR, SpO2: stable & adequate BP & HR: stable & adequate Hydration State: stable & adequate Neuraxial Anesthesia: was administered and sensory block is resolving Anesthetic Complications: no major complications apparent and Pt Satisfied with anesthetic care
--- NOTE | 2019-10-20 11:26 | Fluoroscopy Report ---
FL hip LT 1V CLINICAL HISTORY: LEFT ANTERIOR HIP COMPARISON STUDY: AP pelvis dated 07/26/2019 FLUOROSCOPY TIME: 28 seconds. NUMBER OF FLUOROSCOPIC IMAGES: 2 FINDINGS: 2 intraoperative fluoroscopic spot images reveal postsurgical changes of a total left hip a rthroplasty. No dislocation is evident. IMPRESSION: Intraoperative fluoroscopic spot images obtained demonstrating a total left hip arthropl asty. Electronically signed by: Eliezer Martin M.D. 10/20/2019 11:25 AM
[2019-10-20] MEDS: BuPROPion SR 100 MG TABCR PO SCH (12:04)
[2019-10-20] MEDS: lamoTRIgine 100 MG TAB PO SCH ×2 (12:04→20:08)
[2019-10-20] MEDS: ASPIRIN 81 MG ECTAB PO SCH ×2 (12:04→20:08)
[2019-10-20] MEDS: KETOROLAC 30 MG/ML VIAL IV SCH ×3 (12:04→22:21)
[2019-10-20] MEDS: DOCUSATE SODIUM 100 MG CAP PO SCH ×2 (12:04→20:08)
[2019-10-20] MEDS: SERTRALINE HCL 100 MG TABLET PO SCH ×2 (12:04→20:08)
[2019-10-20] MEDS: MULTIVITAMIN TAB PO SCH (12:05)
[2019-10-20] MEDS: SODIUM CHLORIDE 0.9% 1000ML 1,000 ML IV SCH ×2 (12:08→22:18)
[2019-10-20] MEDS: CEFAZOLIN 2000MG 2,000 MG/15 ML SYR IV SCH ×2 (15:18→22:21)
[2019-10-20] MEDS ORDERED: SENNA 8.6 MG TAB PO SCH (21:00)
[2019-10-21] MEDS: TRAMADOL HCL 50 MG TABLET PO PRN ×2 (02:39→10:36)
[2019-10-21] MEDS: KETOROLAC 30 MG/ML VIAL IV SCH (05:30)
[2019-10-21 06:55] LABS: Basophils # (auto) 0.02 K/uL (0-0.2); Basophils % (auto) 0.2 %; Eosinophils # (auto) 0.01 K/uL (0-0.5); Eosinophils % (auto) 0.1 %; Hematocrit (blood only) 33.1 % (42-52); Hemoglobin 11.2 g/dL (14.0-18.0); Immature Granulocytes # (auto) 0.03 K/uL (0.00-0.02); Immature Granulocytes % (auto) 0.3 %; Lymphocytes # (auto) 1.35 K/uL (1.2-3.4); Lymphocytes % (auto) 12.1 %; Mean Corpuscular Hemoglobin 31.5 pg (25-34); Mean Corpuscular Hgb Conc 33.8 g/dL (32-36); Mean Corpuscular Volume 93.2 fL (80-100); Monocytes % (auto) 8.1 %; Neutrophils # (auto) 8.82 K/uL (1.4-6.5); Neutrophils % (auto) 79.2 %; Platelet Count 138 K/uL (130-400); RDW Coefficient of Variation 13.4 % (11.5-14.5); RDW Standard Deviation 45.8 fL (36.4-46.3); Red Blood Count 3.55 M/uL (4.7-6.1); White Blood Count 11.13 K/uL (4.8-10.8)
[2019-10-21 07:30] LABS: BUN Creatinine Ratio 18.9 (10-20); Calcium 8.5 mg/dl (8.5-10.1); Creatinine Clr Calc Pharmacy 88.3 ml/min; Est GFR (African American) 103.8; Est GFR (Non-African American) 89.5
[2019-10-21] MEDS ORDERED: dexAMETHasone 10 MG in SYRINGE 0 ML IV SCH (08:00)
--- NOTE | 2019-10-21 08:51 | Orthopedic Progress Note ---
Date of Service October 21, 2019 Assessment & Plan (1) History of total left hip arthroplasty: Overall he is doing very well. He is not having much pain in the left hip. He will be seen by physical therapy this morning for ambulation and range of motion exercises. He is on aspirin for DVT prophylaxis. He can be discharged home later today. Present on Admission?: Yes Subjective Saurav was seen and examined at bedside this morning. Overall he is doing very well. Is not having much pain in the left hip. He has already been up and ambulating. He has no complaints. Physical Exam Musculoskeletal: On physical examination of the left hip, the Ashely VAC dressing is to suction. His leg lengths are equal. He has active dorsiflexion and plantarflexion of his left ankle. Sensation is intact throughout. Results & Data Vital Signs (Past 12 Hours) Vital Signs Temp Pulse Pulse Resp BP BP Pulse Ox 10/21/19 03:45 36.9 C 76 16 120/75 98 10/20/19 23:35 36.6 C 77 16 111/63 97 Laboratory Results H & H 09/27/19 10/21/19 Range/Units 11:28 06:38 Hgb 14.0 11.2 L (14.0-18.0) g/dL Hct 42.7 33.1 L (42-52) % Coagulation 09/27/19 Range/Units 11:28 INR 1.0 (0.9-1.1) Diagnostic Findings Postoperative x-rays of the left hip show the prosthesis to be in anatomic alignment without any evidence of fracture, dislocation, or loosening. PG Care Time/CCT Total # of Minutes Spent Total Time Spent with Patient: Total time spent is greater than 50% in coordination of care (as documented) at patient's floor/unit and/or counseling patient:
--- NOTE | 2019-10-21 08:52 | Discharge Summary ---
Date of Service October 21, 2019 Admission HPI Per Admitting Provider Saurav is a pleasant 58-year-old male who is been dealing with chronic increasing bilateral knee pain. X-rays and clinical examination have been diagnostic for primary osteoarthritis of both hips. He underwent a right anterior total hip arthroplasty in June 2019 and did very well with that. He has now elected to proceed with a left total knee arthroplasty. Principal Diagnosis Left total hip arthroplasty Discharge Data Allergies Allergy/AdvReac Type Severity Reaction Status Date / Time No Known Allergies Allergy Verified 10/20/19 05:28 Consultations 10/21/19 08:00 Consult Case Management - Discharge Planning Routine Procedures Performed Operation Date: 10/20/19 07:00 Actual Procedures p Left Anterior Total Hip Arthroplasty(Left) - Vipul Finn DO Ordered Studies 10/20/19 07:00 FL fluoroscopy <1hr Routine FL hip LT 1V Routine Hospital Course (1) History of total left hip arthroplasty: On October 20, 2019 Saurav arrived at [facility] and underwent a left anterior total hip arthroplasty without complication. He had a spinal anesthetic. Postoperatively he was started on aspirin for DVT prophylaxis and discharged to general orthopedic floors. His hospital course was uneventful. On postop day #1 his H&H was stable and his pain was well controlled. He was able to participate well with physical therapy. He was then discharged home with [facility]. He will follow-up with orthopedics in 2 weeks. Total Time Total Time Spent Total Time Spent (In Minutes): 20 Discharge Plan Discharge Items Reason For Visit: Left Hip Degenerative Joint Disease Medications and DC Order Prescriptions: No Action sertraline 100 mg Tablet 100 mg PO BID RF: 0 bupropion HCl [Wellbutrin SR] 100 mg Tablet Sustained-Release 12 Hr 100 mg PO QAM RF: 0 lamotrigine [Lamictal] 100 mg Tablet 100 mg PO BID RF: 0 Prilosec OTC 20 mg Tablet,Delayed Release (Dr/Ec) 20 mg PO DAILY PRN (Reason: GERD) RF: 0 cholecalciferol (vitamin D3) [Vitamin D3] 2,000 unit Capsule 4,000 unit PO QAM RF: 0 PreserVision AREDS-2 [phone] Capsule 1 tab PO QAM RF: 0 aspirin [Ecotrin Low Strength] 81 mg tablet,delayed release (DR/EC) 81 mg PO QAM RF: 0 ibuprofen 200 mg Tablet 400 mg PO Q6H PRN (Reason: Pain) RF: 0 Admission Data Admit Date/Time: 10/20/19 09:40 Attending Provider: Vipul Finn Admit Provider: Vipul Finn Primary Care Provider: Ann Morales
[2019-10-21] MEDS: MULTIVITAMIN TAB PO SCH (08:57)
[2019-10-21] MEDS: SERTRALINE HCL 100 MG TABLET PO SCH (08:57)
[2019-10-21] MEDS: DOCUSATE SODIUM 100 MG CAP PO SCH (08:57)
[2019-10-21] MEDS: BuPROPion SR 100 MG TABCR PO SCH (08:57)
[2019-10-21] MEDS: ASPIRIN 81 MG ECTAB PO SCH (08:57)
[2019-10-21] MEDS: lamoTRIgine 100 MG TAB PO SCH (08:57)
== END 2019-10-21 10:46 | disposition home health service (06) | DRG 470 ==
LOC: ASU 05:07 → 3E 09:40

== ENCOUNTER 2021-10-07 06:02 | Observation (INO) ==
--- NOTE | 2021-07-28 13:49 | PAT Medication Instructions ---
Medication Instructions Date of Service July 28, 2021 Home Medications Medication Instructions Recorded sildenafil 100 mg tablet See Rx Instructions PO DAILY PRN 06/12/20 #10 tab sertraline 100 mg tablet 100 mg PO BID #60 tab 01/27/21 lamotrigine 150 mg tablet 150 mg PO BID #60 tab 02/28/21 (Lamictal) bupropion HCl 100 mg tablet,12 hr 200 mg PO QAM #60 ea 03/03/21 sustained-release omeprazole 20 mg capsule,delayed 20 mg PO DAILY #90 cap 05/05/21 release gabapentin 300 mg capsule 300 mg PO .COMPLEX #90 cap 05/16/21 trazodone 50 mg tablet 50 mg PO DAILY PRN #30 tab 07/02/21 valsartan 160 mg tablet 160 mg PO DAILY #30 tab 07/22/21 cholecalciferol (vitamin D3) 50 mcg (2,000 unit) capsule (Vitamin D3) 4,000 unit PO QAM ibuprofen 200 mg tablet 400 mg PO Q6H PRN aspirin 81 mg tablet,delayed release (Ecotrin Low Strength) 81 mg PO QAM sildenafil 100 mg tablet See Rx Instructions PO DAILY PRN sertraline 100 mg tablet 100 mg PO BID lamotrigine 150 mg tablet (Lamictal) 150 mg PO BID bupropion HCl 100 mg tablet,12 hr sustained-release 200 mg PO QAM omeprazole 20 mg capsule,delayed release 20 mg PO DAILY gabapentin 300 mg capsule 300 mg PO .COMPLEX trazodone 50 mg tablet 50 mg PO DAILY PRN valsartan 160 mg tablet 160 mg PO DAILY PreserVision AREDS-2 1 tab PO QAM ASK your surgeon for instructions ibuprofen 200 mg tablet 400 mg PO Q6H PRN ASK your prescriber and surgeon aspirin 81 mg tablet,delayed release (Ecotrin Low Strength) 81 mg PO QAM STOP taking 2 weeks before surgery (or as soon as possible if surgery is within 2 weeks) PreserVision AREDS-2 1 tab PO QAM DO NOT take the morning of surgery cholecalciferol (vitamin D3) 50 mcg (2,000 unit) capsule (Vitamin D3) 4,000 unit PO QAM sildenafil 100 mg tablet See Rx Instructions PO DAILY PRN valsartan 160 mg tablet 160 mg PO DAILY Take morning of surgery With a small sip of water, OTHERWISE NOTHING TO EAT OR DRINK AFTER MIDNIGHT: sertraline 100 mg tablet 100 mg PO BID lamotrigine 150 mg tablet (Lamictal) 150 mg PO BID bupropion HCl 100 mg tablet,12 hr sustained-release 200 mg PO QAM omeprazole 20 mg capsule,delayed release 20 mg PO DAILY gabapentin 300 mg capsule 300 mg PO .COMPLEX Take evening before surgery sildenafil 100 mg tablet See Rx Instructions PO DAILY PRN (if needed) sertraline 100 mg tablet 100 mg PO BID lamotrigine 150 mg tablet (Lamictal) 150 mg PO BID gabapentin 300 mg capsule 300 mg PO .COMPLEX trazodone 50 mg tablet 50 mg PO DAILY PRN (if needed) Other Notes If you have any questions please call us at [phone] or [phone] or [phone] or [phone]
--- NOTE | 2021-07-31 08:17 | Anesthesiology Consultation ---
Date of Service July 31, 2021 Assessment & Plan (1) Encounter for pre-operative examination: COVID screening: Per assessment on 07/31: Travel screen negative, no known COVID- 19 positive contacts or current COVID-19 related symptoms. Patient vaccinated. Surgeon arranging preop COVID testing. Awaiting results. Chart Review Chart Review: Acceptable Risk for Surgery and Patient seen in Pre Admission Testing Teaching & Discussion Pre-Anesthesia Teaching/Discussion Notes: Instructed NPO after midnight before surgery,except medications with 15 cc of water. Medication instructions provided according to the PAT guidelines. History Surgery Operation Date: 08/13/21 10:35 Proposed Procedures p C5-C7 Anterior Cervical Discectomy and Fusion, Possible C6 Corpectomy, Spinal Cord Monitoring - David Hill DO Height/Weight Height: 5 ft 10 in Weight: 87.1 kg Allergies Allergy/AdvReac Type Severity Reaction Status Date / Time No Known Allergies Allergy Verified 07/28/21 09:16 Medications Home Medications Medication Instructions Recorded Confirmed Last Taken cholecalciferol (vitamin D3) 50 4,000 unit PO QAM 05/29/19 07/28/21 08/08/20 08:00 mcg (2,000 unit) capsule (Vitamin D3) ibuprofen 200 mg tablet 400 mg PO Q6H PRN 09/20/19 07/28/21 08/08/20 21:00 aspirin 81 mg tablet,delayed 81 mg PO QAM tab 05/30/20 07/28/21 08/07/20 08:00 release (Ecotrin Low Strength) sildenafil 100 mg tablet See Rx Instructions PO DAILY PRN 06/12/20 07/28/21 08/03/20 #10 tab sertraline 100 mg tablet 100 mg PO BID #60 tab 01/27/21 07/28/21 Unknown lamotrigine 150 mg tablet 150 mg PO BID #60 tab 02/28/21 07/28/21 Unknown (Lamictal) bupropion HCl 100 mg tablet,12 hr 200 mg PO QAM #60 ea 03/03/21 07/28/21 Unknown sustained-release omeprazole 20 mg capsule,delayed 20 mg PO DAILY #90 cap 05/05/21 07/28/21 Unknown release gabapentin 300 mg capsule 300 mg PO .COMPLEX #90 cap 05/16/21 07/28/21 Unknown trazodone 50 mg tablet 50 mg PO DAILY PRN #30 tab 07/02/21 07/28/21 Unknown valsartan 160 mg tablet 160 mg PO DAILY #30 tab 07/22/21 07/28/21 Unknown vit C 250 mg-vit E 90 mg-zinc 40 1 tab PO QAM 07/28/21 07/28/21 Unknown mg-copper 1 [id number] capsule (PreserVision AREDS-2) Past Medical History Medical History Barretts esophagus Cervical spinal stenosis Chronic back pain Cervical region (no ROM limitations per pt) Depression GERD (gastroesophageal reflux disease) controlled Osteoarthritis Exercise / Class Metabolic Activity II 4-5 Yardwork/Stairs/Walk up hill (one FS (no CP, no SOB)) Past Family History Family History Grandmother (Paternal) Family history of diabetes mellitus Depression Father Family history of diabetes mellitus Depression Brother Family history of diabetes mellitus Family/Other Family history of diabetes mellitus Grandfather (Maternal) Alcohol abuse Mother Breast cancer Other No family history of adverse response to anesthesia Denies family history of Ovarian cancer Prostate cancer Myocardial infarction Colorectal cancer Past Surgical History Surgical History History of colonoscopy History of esophagogastroduodenoscopy (EGD) History of shoulder surgery Left History of tooth extraction History of total hip arthroplasty R/L Left anterior hip arthroplasty (10/20/19): SAB at L3/L4 (x1 attempt) at [facility] Past Anesthesia History No Hx of Anesthesia Complications and No Family Hx of Anesthesia Complications History of PONV No Hx of PONV and Hx of Motion Sickness Social History Smoking Status: Never smoker Do You Dip or Chew Tobacco: No Hx Alcohol Use: Yes Alcohol type: hard liquor alcohol intake frequency: 0-2 drinks per day (2 drinks/day (liquor)) substance use type: does not use Review of Systems Patient denies chest pain, shortness of breath, dyspnea on exertion, fever, chills, cough, wheezing, palpitations. Physical Exam Vital Signs VITALS BP 124/81 P 75 TEMP 98.4 SP02 96%RA RESP 16 PHYSICAL (PE done per Nedra Onick, PAC) Full cervical extension range of motion. Full TMJ range of motion. TMD 3.5 finger breaths Mallampati Score 2 Dentition: intact, + several crown (molars) Lungs: clear throughout to auscultation Cardiac: regular rate and rhythm, no murmurs noted Spine: normal Carotid arteries: negative bruit Extremities: no edema Trimmed madrid Lab Results Anesthesia Preop Results Results Anesthesia Widget: WBC 5.30 K/uL (4.8-10.8) 07/31/21 Hgb 14.1 g/dL (14.0-18.0) 07/31/21 Hct 42.0 % (42-52) 07/31/21 Plt 138 K/uL (130-400) 07/31/21 Na 140 mmol/L (136-145) 07/31/21 K 4.4 mmol/L (3.5-5.1) 07/31/21 Cl 106 mmol/L (98-107) 07/31/21 CO2 28 mmol/L (21-32) 07/31/21 BUN 20 mg/dl (7-18) H 07/31/21 Creat 1.10 mg/dl (0.6-1.4) 07/31/21 Glucose Level 143 mg/dl (70-99) H 07/31/21 PT 9.3 Seconds (9.0-12.0) 07/31/21 PTT 24.5 Seconds (21.0-31.0) 07/31/21 INR 0.9 (0.9-1.1) 07/31/21 Urine Color Yellow 07/31/21 Urine Appearance Clear (Clear) 07/31/21 Urine pH 5.5 (4.5-7.5) 07/31/21 Urine Specific [place] 1.018 (1.000-1.030) 07/31/21 Urine Protein Negative (Negative) 07/31/21 Urine Glucose (UA) Negative (Negative) 07/31/21 Urine Ketones Negative (Negative) 07/31/21 Urine Blood Negative (Negative) 07/31/21 Urine Nitrite Negative (Negative) 07/31/21 Urine Bilirubin Negative (Negative) 07/31/21 Urine Urobilinogen Negative (Negative) 07/31/21 Urine Leukocyte Esterase Negative (Negative) 07/31/21 Blood Type B Positive 07/31/21 Antibody Screen NEGATIVE 07/31/21 Testing Electrocardiogram Date: 07/31/21 Findings: + NSR @ (73) Chest X-Ray Date: 07/31/21 Findings: + NAD
--- NOTE | 2021-08-11 10:14 | History & Physical Report ---
Date of Service August 11, 2021 Assessment & Plan (1) Herniation of cervical intervertebral disc with radiculopathy: Plan: Assessment cervical disc herniation with myeloradiculopathy. Plan at this time patient has progressive neurologic deficit we are recommending an C5-C7 anterior cervical discectomy and fusion with possible C6 corpectomy. Hopefully we can avoid permanent neurologic deficit by urgent attention and surgery. Risk benefits pros cons and alternatives were outlined in detail. History of Present Illness Chief Complaint: Neck and left arm pain with weakness Primary Care Provider: DEWEY Malin This is a 60-year-old male presents with marked decline in status complaining of significant cervicalgia with radiation to left upper extremity. He notes significant sensory deficits and weakness affecting his ability to function. Is failed extensive course of nonoperative care. Allergies Allergy/AdvReac Type Severity Reaction Status Date / Time No Known Allergies Allergy Verified 08/07/21 12:27 Home Medications Medication Instructions Recorded Confirmed Type cholecalciferol (vitamin D3) 50 4,000 unit PO QAM 05/29/19 08/07/21 History mcg (2,000 unit) capsule (Vitamin D3) ibuprofen 200 mg tablet 400 mg PO Q6H PRN 09/20/19 08/07/21 History aspirin 81 mg tablet,delayed 81 mg PO QAM tab 05/30/20 08/07/21 History release (Ecotrin Low Strength) sildenafil 100 mg tablet See Rx Instructions PO DAILY PRN 06/12/20 08/07/21 Rx #10 tab lamotrigine 150 mg tablet 150 mg PO BID #60 tab 02/28/21 08/07/21 Rx (Lamictal) bupropion HCl 100 mg tablet,12 hr 200 mg PO QAM #60 ea 03/03/21 08/07/21 Rx sustained-release omeprazole 20 mg capsule,delayed 20 mg PO DAILY #90 cap 05/05/21 08/07/21 Rx release gabapentin 300 mg capsule 300 mg PO .COMPLEX #90 cap 05/16/21 08/07/21 Rx trazodone 50 mg tablet 50 mg PO DAILY PRN #30 tab 07/02/21 08/07/21 Rx valsartan 160 mg tablet 160 mg PO DAILY #30 tab 07/22/21 08/07/21 Rx sertraline 100 mg tablet 100 mg PO BID #60 tab 08/06/21 08/07/21 Rx Past Med/Surg History Medical History Barretts esophagus Cervical spinal stenosis Chronic back pain Cervical region (no ROM limitations per pt) Depression GERD (gastroesophageal reflux disease) controlled Osteoarthritis Surgical History History of colonoscopy History of esophagogastroduodenoscopy (EGD) History of shoulder surgery Left History of tooth extraction History of total hip arthroplasty R/L Left anterior hip arthroplasty (10/20/19): SAB at L3/L4 (x1 attempt) at [facility] Family History Grandmother (Paternal) Family history of diabetes mellitus Depression Father Family history of diabetes mellitus Depression Brother Family history of diabetes mellitus Family/Other Family history of diabetes mellitus Grandfather (Maternal) Alcohol abuse Mother Breast cancer Other No family history of adverse response to anesthesia Denies family history of Ovarian cancer Prostate cancer Myocardial infarction Colorectal cancer Social History (Updated 08/07/21 @ 12:38 by Vivian Donohue MA) Smoking Status: Never smoker Second Hand Exposure: No; Do You Dip or Chew Tobacco: No; Hx Alcohol Use: Yes Alcohol type: hard liquor Hx Substance Use: No Preferred Language: Spanish Communication Ability: Effective Visual Impairment: No Limitations Hearing Ability: Hard of Hearing 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 Deltoids and biceps are 5 5 bilaterally. The significant sensory deficits to the left as well as a positive Spurling sign.
[~2021-10-07 06:02] MED LIST changes: -BUPIVACAINE 0.5 % 5 MG/1 ML PF 10ML VIAL ONE; -BUPIVACAINE LIPOSOME/PF 266 MG, BUPIVACAINE/EPINEPHRINE 50 ML, SODIUM CHLORIDE 0.9% 30 ... INFIL SCH; -CEFAZOLIN 1000MG 1,000 MG/7.5 ML SYR IV SCH; +CeleBREX 200 MG CAP PO SCH; -FAMOTIDINE 20 MG TAB PO SCH; -GABAPENTIN 300 MG CAP PO SCH; +GABAPENTIN 600 MG DOSE PO SCH; +LR 15ML/HR IV SCH; -LR 500ML BOLUS IV SCH; -LR 500ML BOLUS, THEN 15ML/HR IV SCH; -LR 60ML/HR IV SCH; -MIDAZOLAM HCL 1 MG/ML 2ML VIAL ONE; -ROPIVACAINE 0.5% HCL/PF 150 MG, BUPIVACAINE 0.5% MPF 30 ML, EPINEPHrine 30MG/30ML (OR U... INFIL SCH; -TRANEXAMIC ACID 1,000 MG **IV Intra-op IV SCH; -TRANEXAMIC ACID 1,000 MG **IV Pre-op IV SCH; +ceFAZolin 2000MG 2,000 MG/15 ML SYR IV SCH; -fentaNYL citrate 100 MCG/2 ML VIAL ONE
--- NOTE | 2021-10-07 07:38 | History & Physical Bridge Note ---
Date of Service October 07, 2021 History & Physical Bridge Note I have examined the patient, reviewed the History & Physical and in the interval since the performance of the History & Physical I have noted the following changes of clinical significance: no changes noted
--- NOTE | 2021-10-07 07:47 | History & Physical Report ---
Date of Service October 07, 2021 Assessment & Plan (1) Herniation of cervical intervertebral disc with radiculopathy: Plan: C5-C6 anterior cervical discectomy and fusion, possible C6 corpectomy History of Present Illness Chief Complaint: Neck and arm pain Primary Care Provider: DEWEY Malin This is a 60-year-old male presents with worsening neck and arm symptoms after failing course of nonoperative care is here for surgical invention. Allergies Allergy/AdvReac Type Severity Reaction Status Date / Time No Known Allergies Allergy Verified 10/07/21 06:16 Home Medications Medication Instructions Recorded Confirmed Type cholecalciferol (vitamin D3) 50 4,000 unit PO QAM 05/29/19 10/07/21 History mcg (2,000 unit) capsule (Vitamin D3) ibuprofen 200 mg tablet 400 mg PO Q6H PRN 09/20/19 10/07/21 History aspirin 81 mg tablet,delayed 81 mg PO QAM tab 05/30/20 10/07/21 History release (Ecotrin Low Strength) sildenafil 100 mg tablet See Rx Instructions PO DAILY PRN 06/12/20 10/06/21 Rx #10 tab omeprazole 20 mg capsule,delayed 20 mg PO DAILY #90 cap 05/05/21 10/07/21 Rx release trazodone 50 mg tablet 50 mg PO DAILY PRN #30 tab 07/02/21 10/06/21 Rx valsartan 160 mg tablet 160 mg PO DAILY #30 tab 07/22/21 10/06/21 Rx sertraline 100 mg tablet 100 mg PO BID #60 tab 08/06/21 10/07/21 Rx bupropion HCl 100 mg tablet,12 hr 200 mg PO QAM #60 ea 09/02/21 10/07/21 Rx sustained-release lamotrigine 150 mg tablet 150 mg PO BID #60 tab 09/22/21 10/07/21 Rx (Lamictal) Past Med/Surg History Medical History (Updated 10/07/21 @ 06:16 by Bonnie Wood RN) Barretts esophagus Cervical spinal stenosis Chronic back pain Cervical region (no ROM limitations per pt) Depression Fibula fracture GERD (gastroesophageal reflux disease) controlled Osteoarthritis Surgical History History of colonoscopy History of esophagogastroduodenoscopy (EGD) History of shoulder surgery Left History of tooth extraction History of total hip arthroplasty R/L Left anterior hip arthroplasty (10/20/19): SAB at L3/L4 (x1 attempt) at [facility] Family History Grandmother (Paternal) Family history of diabetes mellitus Depression Father Family history of diabetes mellitus Depression Brother Family history of diabetes mellitus Family/Other Family history of diabetes mellitus Grandfather (Maternal) Alcohol abuse Mother Breast cancer Other No family history of adverse response to anesthesia Denies family history of Ovarian cancer Prostate cancer Myocardial infarction Colorectal cancer Social History (Updated 08/07/21 @ 12:38 by Vivian Donohue MA) Smoking Status: Never smoker Second Hand Exposure: No; Do You Dip or Chew Tobacco: No; Tobacco Cessation Education Requested by Patient: No Hx Alcohol Use: Yes Alcohol type: hard liquor Hx Substance Use: No Preferred Language: Lao Communication Ability: Effective Visual Impairment: No Limitations Hearing Ability: Hard of Hearing Requisition Approver Required: No Beliefs That Will Affect Care: None marital status: Current Living Situation: Alone current occupational status: retired Other Information That Helps Us Care for You: No Feels Safe at Home: Yes Safety Concerns: Feels Safe At This Time Childhood Exposure to Second-Hand Smoke: No Diet Comment: Healthy diet caffeine: Yes Dental Care, Regularly: Yes Physical Activity Frequency: Does not Exercise Seatbelt Use: always Sunscreen Use: Yes Assistive Devices: Glasses Physical Exam Physical Exam: Patient is alert and oriented Heart regular in rhythm Lungs clear Results & Data ([facility]) Vital Signs (Past 12 Hours) Vital Signs Temp Pulse Resp BP Pulse Ox 10/07/21 06:22 37 C 71 18 146/93 H 96
[2021-10-07] MEDS ORDERED: ePHEDrine sulfate 50 MG/ML AMP IV PRN (08:00)
[2021-10-07] MEDS ORDERED: ONDANSETRON INJ 2 MG/ML 2 ML VIAL IV PRN ×2 (08:00→12:43)
[2021-10-07] MEDS ORDERED: PROMETHAZINE HCL 6.25 MG in SODIUM CHLORIDE 0.9% 50 ML IV PRN (08:00)
[2021-10-07] MEDS ORDERED: ATROPINE SULFATE 0.1 MG/ML 10ML SYR IV PRN (08:00)
[2021-10-07] MEDS ORDERED: HYDROmorphone INJ 2 MG/ML SYR/VIAL IV PRN (08:00)
[2021-10-07] MEDS ORDERED: LIDOCAINE 2% 2 ML VIAL/AMP(20MG/ML) INFIL ONE (08:26)
[2021-10-07] MEDS ORDERED: PROPOFOL IV EMULSION 10 MG/ML 20 ML VIAL IV ONE (08:26)
[2021-10-07] MEDS ORDERED: MIDAZOLAM HCL 1 MG/ML 2ML VIAL ONE (08:26)
[2021-10-07] MEDS ORDERED: fentaNYL citrate 100 MCG/2 ML VIAL ONE ×2 (08:26→10:57)
[2021-10-07] MEDS ORDERED: ONDANSETRON INJ 2 MG/ML 2 ML VIAL ONE (08:26)
[2021-10-07] MEDS ORDERED: ROCURONIUM BROMIDE 10 MG/ML 5 ML VIAL IV ONE ×2 (08:35→09:30)
[2021-10-07] MEDS ORDERED: NEOSTIGMINE METHYLSULFATE 1 MG/ML 10ML VIAL ONE (10:11)
[2021-10-07] MEDS ORDERED: ePHEDrine sulfate 50 MG/ML SYR ONE (10:11)
[2021-10-07] MEDS ORDERED: GLYCOPYRROLATE 0.2 MG/ML VIAL ONE (10:11)
[2021-10-07] MEDS ORDERED: FLOSEAL HEMOSTATIC MATRIX 10ML TOP ONE (10:37)
--- NOTE | 2021-10-07 10:47 | Operative Report ---
Post Operative Report Pre & Post Diagnosis Operation Date: 08/13/21 07:45 <No data on this case meets the specified criteria> Operation Date: 08/26/21 13:40 <No data on this case meets the specified criteria> Operation Date: 10/07/21 07:45 Pre-Op Diagnosis: Herniation of cervical intervertebral disc with radiculopathy Post-Op Diagnosis: Herniation of cervical intervertebral disc with radiculopathy I identified the patient and participated in the time-out.: Yes Procedure Operation Date: 08/13/21 07:45 <No data on this case meets the specified criteria> Operation Date: 08/26/21 13:40 <No data on this case meets the specified criteria> Operation Date: 10/07/21 07:45 Actual Procedures #1 anterior cervical discectomy with bilateral foraminotomies C5-C6 C6-C7. #2 anterior cervical arthrodesis C5-C6 C6-C7. #3 placement of 7 mm spiral cage filled with I factor C5-C6 and 8 mm cage at C6-C7. #4 application of vasquez plate and screws across C5-C6 C6-C7. Surgeon David Hill, DO [place] [employer] Afua Melgar Estimated Blood Loss 10 Findings Consistent with Post-Op Diagnosis Specimens None Indications This is a 60-year-old male who presents above-mentioned diagnosis after failing course of nonoperative care is here for surgical invention. Description of Procedure Patient was met with identified informed consent obtained. Patient was then taken to the operative suite underwent ablation placed in supine position the Mike table with head Vega head of design. All bony prominences well-padded eyes inspected to ensure no external pressure placed upon the. This point the an terior cervical spine was prepped and draped in the normal sterile fashion. Incision was then placed along the right anterior aspect of the cervical spine overlying the C6 vertebral body. Blunt dissection with the assistance of bipolar electrocautery was then performed down to and exposing the anterior cervical spine from C3 5 to C7. Self-retaining retractors placed. Informed complete discectomy of C5-C6 out to the uncovertebral joints bilaterally. This included removal of all posterior annular fibers longitudinal ligament bilateral foraminotomies performed. Endplates then burred to subcortically bone and a 7 mm spiral cage filled with I factor tapped in position. Then proceeded to C6-C7. Again complete discectomy performed out to the uncovertebral's bilaterally. Removed all posterior annular fibers longitudinal ligament bilateral foraminotomies performed. Endplates were then burred to subcortical being bone and a 8 mm spiral cage filled with I factor tapped in position. Distracting ap paratus was removed all anterior osteophytes burred to a smooth cortical surface and a 5 vasquez plate and screws applied with the assistance of fluoroscopy. Incision was then copiously irrigated explored to ensure no damage to surrounding structure remaining bleeding. 10 round GRACE drain inserted. Incision was then closed with 2 Vicryl in a fashion of 4 Monocryl for final skin closure. Steri-Strip sterile dressings placed. Patient waken taken to PACU stable condition. Please note spinal cord monitoring was utilized at the procedure no changes noted. Lastly Afua Melgar was present at the entire surgery and while the patient positioning complex portions of the surgery and fascial closure. I attest to the content of the Intraoperative Record and any orders documented therein. Any exceptions are noted below.
--- NOTE | 2021-10-07 11:04 | Fluoroscopy Report ---
FL cervical 2-3V CLINICAL HISTORY: ACDF C5-7 CORPECTOMY C6 COMPARISON STUDY: None FLUOROSCOPY TIME: 17 seconds. FLUOROSCOPIC IMAGES: 3 FINDINGS: The patient is status post anterior plate and screw fixation from C5-C7 with disc spacers i n place. IMPRESSION: Status post anterior cervical spine fusion. ACT 112: Negative or not required by law. Electronically signed by: Stevie Dowd M.D. 10/07/2021 11:02 AM
[2021-10-07] MEDS: fentaNYL citrate 100 MCG/2 ML VIAL IV PRN ×4 (11:07→11:36)
--- NOTE | 2021-10-07 12:18 | Anesthesiology Progress Note ---
Date of Service October 07, 2021 Anesthesia Post Procedure Vital Signs Vital Signs: Temp Pulse Resp BP Pulse Ox 10/07/21 12:00 36.4 C L 87 14 137/86 97 10/07/21 11:50 83 16 141/79 H 98 10/07/21 11:40 84 16 138/85 97 10/07/21 11:30 85 16 137/96 95 10/07/21 11:20 79 16 130/93 98 10/07/21 11:10 88 18 124/80 100 10/07/21 11:02 36.2 C L 94 H 18 137/88 100 10/07/21 06:22 37 C 71 18 146/93 H 96 Pain Intensity Right Ankle: Pain Intensity: 1 Transfer of Care Handoff Completed per policy Notes Mental Status: alert / awake / arousable Patient Amnestic to Procedure: Yes Nausea / Vomiting: adequately controlled Pain: adequately controlled Airway Patency, RR, SpO2: stable & adequate BP & HR: stable & adequate Hydration State: stable & adequate Anesthetic Complications: no major complications apparent
[2021-10-07] MEDS ORDERED: MAGNESIUM HYDROXIDE SUSP 30 ML UDC PO PRN (12:43)
[2021-10-07] MEDS ORDERED: FAMOTIDINE 20 MG TAB PO PRN (12:43)
[2021-10-07] MEDS ORDERED: ACETAMINOPHEN 500 MG TAB PO PRN (12:43)
[2021-10-07] MEDS ORDERED: SOD PHOSPHATE/SOD BIPHOSPHATE ENEMA 132 ML BTL PR PRN (12:43)
[2021-10-07] MEDS ORDERED: diphenhydrAMINE Capsule 25 MG CAP PO PRN (12:43)
[2021-10-07] MEDS ORDERED: DO NOT ADMINISTER PNEUMOCOCCAL VACCINE PRN (12:43)
[2021-10-07] MEDS ORDERED: ACETAMINOPHEN 1,000 MG/100 ML VIAL IV PRN (12:43)
[2021-10-07] MEDS ORDERED: bisacodyL 10 MG SUPP PR PRN (12:43)
[2021-10-07] MEDS ORDERED: HYDROmorphone INJ 1 MG/ML SYRINGE IV PRN (12:43)
[2021-10-07] MEDS ORDERED: METOCLOPRAMIDE HCL INJ 5 MG/ML 2 ML VIAL IV PRN (12:43)
[2021-10-07] MEDS ORDERED: DO NOT ADMINISTER FLU VACCINE PRN (12:43)
[2021-10-07] MEDS ORDERED: NALOXONE HCL 0.4 MG/1 ML VIAL/CARP IV PRN (12:43)
[2021-10-07] MEDS ORDERED: hydrOXYzine HCl 25 MG TAB PO PRN (12:43)
[2021-10-07] MEDS ORDERED: LORazepam 0.5 MG/1 ML VIAL IV PRN (12:43)
[2021-10-07] MEDS ORDERED: LORazepam 0.5 MG TAB PO PRN (12:43)
[2021-10-07] MEDS ORDERED: PROMETHAZINE HCL 12.5 MG in SODIUM CHLORIDE 0.9% 50 ML IV PRN (12:43)
[2021-10-07] MEDS ORDERED: RACEPINEPHRINE 2.25% NEBU SOLN 0.5 ML VIAL INH PRN (12:43)
[2021-10-07] MEDS ORDERED: traMADol HCL 50 MG TABLET PO PRN (12:43)
[2021-10-07] MEDS ORDERED: ALUMINUM/MAGNESIUM SUSP 30 ML UDC PO PRN (12:43)
[2021-10-07] MEDS ORDERED: HYDROmorphone INJ 0.5 MG/0.5 ML SYR IV PRN (12:43)
[2021-10-07] MEDS ORDERED: traZODone HCL 50 MG TAB PO PRN (12:43)
[2021-10-07] MEDS ORDERED: ONDANSETRON 4 MG OD TAB PO PRN (12:43)
[2021-10-07] MEDS ORDERED: dexAMETHasone 8 MG in SYRINGE 0 ML IV PRN (12:43)
[2021-10-07] MEDS: LACTATED RINGER'S 1,000 ML IV SCH (13:42)
[2021-10-07] MEDS: ceFAZolin 2000MG 2,000 MG/15 ML SYR IV SCH (16:57)
[2021-10-07] MEDS: lamoTRIgine 100 MG TAB PO SCH (20:14)
[2021-10-07] MEDS: SERTRALINE HCL 100 MG TABLET PO SCH (20:14)
[2021-10-07] MEDS ORDERED: DOCUSATE SODIUM/SENNA 50/8.6MG TAB PO SCH (21:00)
[2021-10-08] MEDS: ceFAZolin 2000MG 2,000 MG/15 ML SYR IV SCH (01:12)
[2021-10-08] MEDS: LACTATED RINGER'S 1,000 ML IV SCH (01:16)
[2021-10-08] MEDS ORDERED: POLYETHYLENE (MIRALAX) 17 GM PACK PO SCH (06:00)
[2021-10-08] MEDS: oxyCODONE HCL IR 5 MG TAB (IMMEDIATE RELEASE) PO PRN ×2 (07:56→08:47)
[2021-10-08] MEDS ORDERED: dexAMETHasone 6 MG in SYRINGE 0 ML IV SCH (09:00)
[2021-10-08] MEDS ORDERED: ASPIRIN 81 MG ECTAB PO SCH (09:00)
[2021-10-08] MEDS ORDERED: PANTOprazole 40 MG TAB PO SCH (09:00)
[2021-10-08] MEDS ORDERED: buPROPion SR 100 MG TABCR PO SCH (09:00)
[2021-10-08] MEDS ORDERED: CHOLECALCIFEROL 1,000 UNITS 25 MCG TAB PO SCH (09:00)
[2021-10-08] MEDS ORDERED: VALSARTAN 80 MG TAB PO SCH (09:00)
[2021-10-08] MEDS: lamoTRIgine 100 MG TAB PO SCH (09:26)
[2021-10-08] MEDS: SERTRALINE HCL 100 MG TABLET PO SCH (09:26)
--- NOTE | 2021-10-08 12:22 | Discharge Summary ---
Date of Service October 08, 2021 Admission HPI Per Admitting Provider This is a 60-year-old male presents with worsening neck and arm symptoms after failing course of nonoperative care is here for surgical invention. Principal Diagnosis Cervical spinal stenosis with radiculopathy Discharge Data Allergies Allergy/AdvReac Type Severity Reaction Status Date / Time No Known Allergies Allergy Verified 10/07/21 06:16 Consultations 10/07/21 12:43 Consult Hospitalist Routine Procedures Performed Operation Date: 08/13/21 07:45 <No data on this case meets the specified criteria> Operation Date: 08/26/21 13:40 <No data on this case meets the specified criteria> Operation Date: 10/07/21 07:45 Actual Procedures p C5-C7 Anterior Cervical Discectomy Fusion, Spinal Cord Monitoring(Not Applicable) - David Hill DO Ordered Studies 10/07/21 07:45 FL cervical 2-3V Routine Hospital Course (1) Cervical radicular pain: Patient underwent anterior cervical discectomy and fusion tolerated so was taken to orthopedic for postoperative. Postop day 1 he was up and ambulating arm symptoms improved swallowing well no hoarseness extra strength testing GRACE drain decreasing appropriately. Subsequent discharge home. Discharge orders instructions from the chart for further review. Total Time Total Time Spent Total Time Spent (In Minutes): 20 minutes Discharge Plan Discharge Items Patient Disposition: Home - Self-Care Reason For Visit: Spinal Stenosis, Cervical Region Discharge Diagnosis: cervical stenosis Activity: As commented below Non-emergency contact: Primary Care Provider Call non-emergency contact if: you have any medication questions Follow-up/Referrals: Ann Elizondo CRNP [Primary Care Provider] - Diet: Regular Addtl Attending Provider Instructions: ACTIVITY RECOMMENDATIONS: SELF CARE INSTRUCTIONS AFTER CERVICAL FUSIONS 1. No smoking. Smoking drastically decreases the chance of a solid fusion. 2. No bending, lifting more than 5 pounds, or twisting (roll like a log when turning in bed). 3. You may shower 3 days after surgery. Thoroughly dry wound. Do not soak in the tub. 4. Cervical collar: Must be worn at all times including sleeping. You may remove the brace only to bath, eat and if you are sitting in a recliner. 5. Please walk as much as you can for exercise. Gradually increase the distance that you walk as your endurance increases. SPECIAL CARE INSTRUCTIONS: VERY IMPORTANT TO READ AND REVIEW A. Do not take any anti-inflammatory medications (i.e. Indocin, Advil, Aspirin, Naprosyn, Aleve, Motrin, etc.) as these may inhibit the chance of a solid fusion. Tylenol is okay to take. B. Your surgical incision has been closed with a cosmetic suture under the skin that will dissolve in about 6 weeks. In 14 days, you can use a pair of clean scissors and cut the suture that is left outside of the skin at the ends of your incision. C. Complications are uncommon, but please contact us if you have any signs or symptoms of: 1. wound infection (fever higher than 102.5 degrees F, redness, separation of wound, drainage, or increasing pain from the incision) 2. blood clots in legs (pain, swelling, redness and warmth in legs) 3. urinary tract infection (fever higher than 102.5 degrees, burning upon urination or increased frequency of urination) 4. nerve problems (inability to walk on your toes or heels, numbness, loss of bowel or bladder control) 5. any other symptoms that concern you. D. Please call the office at if you have any concerns or questions about your operation or recovery. MANAGING PAIN AFTER SPINAL SURGERY 1. Narcotic medication is intended for short-term use and will be provided for surgical pain. Surgical pain usually lasts for a period of 4-6 weeks. Narcotic medication includes Percocet, Vicodin, Darvocet, Tylenol #3 or Lortab. 2. Longer-term pain is more appropriately treated with non-narcotic medication such as Tylenol ES. 3. Muscle spasm is not appropriately treated with narcotics. Muscle relaxers such as Soma, Flexeril or Skelaxin can be used along with Tylenol ES. 4. Remember that we all live with some "aches and pains". This is not unusual or uncommon after an injury or as we get older. 5. We will provide appropriate medication within the normal guidelines of their prescribed use. We will also be very cautious and aware of potential abuse and extended duration of patients' medication needs. 6. Please allow 2-3 days to process refills. Prescriptions will not be mailed but must be picked up at the office. FOLLOW UP VISIT: Keep your scheduled follow-up appointment. Any questions, please call the office at . Pending Studies at Discharge: No Stand-Alone Forms: My [facility], Smoking Cessation Medications and DC Order Prescriptions: New oxycodone 5 mg tablet 5 mg PO Q6H PRN (Reason: pain, severe) Qty: 20 RF: 0 tramadol 50 mg tablet 50 mg PO Q6H PRN (Reason: pain, moderate) Qty: 20 RF: 0 oxycodone 5 mg tablet 5 mg PO Q6H PRN (Reason: pain, severe) Qty: 12 RF: 0 Continued sildenafil 100 mg tablet See Rx Instructions PO DAILY PRN (Reason: sexual activity) Qty: 10 RF: 5 trazodone 50 mg tablet 50 mg PO DAILY PRN (Reason: insomnia) Qty: 30 RF: 5 sertraline 100 mg tablet 100 mg PO BID Qty: 60 RF: 5 bupropion HCl 100 mg tablet sustained-release 12 hr 200 mg PO QAM Qty: 60 RF: 5 lamotrigine [Lamictal] 150 mg tablet 150 mg PO BID Qty: 60 RF: 5 aspirin [Ecotrin Low Strength] 81 mg tablet,delayed release (DR/EC) 81 mg PO QAM RF: 0 valsartan 160 mg tablet 160 mg PO DAILY Qty: 30 RF: 5 omeprazole 20 mg capsule,delayed release(DR/EC) 20 mg PO DAILY Qty: 90 RF: 3 cholecalciferol (vitamin D3) [Vitamin D3] 2,000 unit Capsule 4,000 unit PO QAM RF: 0 ibuprofen 200 mg Tablet 400 mg PO Q6H PRN (Reason: Pain) RF: 0 Discharge Orders: Discharge Order (Routine); Ordered 10/08/21 Ordered By: David Anderson/Other Patient Handouts: DVT Post Op Prevention Admission Data Admit Date/Time: 10/07/21 10:50 Attending Provider: David Hill Admit Provider: David Hill Primary Care Provider: Ann Elizondo Other Providers: Tanja Colmenares Other Interventions: Discharge Summary Assessment (RN) Last Done: 10/08/21 11:22
== END 2021-10-08 12:00 | disposition home or self-care (01) ==
LOC: ASU 06:02 → PACUINP 10:50 → INTOOBSV 10:50 → ASUINP 10-08 06:52